=== PATIENT | female | born 1955 | race Caucasian/White ===

== ENCOUNTER 2019-05-10 06:09 | Day surgery (SDC) | payer OTHER ==
[~2019-05-10] VITALS: Ht 167.6 cm; Wt 140.0 kg
[~2019-05-10 06:09] MED LIST: ALBU6.7H8 INH; CEFD300C37 PO; KDUR PO; METR500T PO; OMEP-110 PO; OXYC-302 PO; RIVA20TA PO; SOTA120T14 PO; ZAROXOLYN PO; [UNRECOGNIZED DRUG - OTHER] PO
[2019-05-10 06:30] VITALS: BP 141/81
[2019-05-10] MEDS ORDERED: MAGN400T36 PO (06:51)
[2019-05-10] MEDS ORDERED: MULT-658 PO (06:51)
[2019-05-10] MEDS ORDERED: AMIL5TAB2 PO (06:51)
[2019-05-10] MEDS ORDERED: METO5TAB5 PO (06:51)
[2019-05-10] MEDS ORDERED: POTA10TA6 PO (06:52)
[2019-05-10 07:34] LABS: ANION GAP 5 mmol/L (5-15); CALCIUM 8.9 mg/dL (8.5-10.1); CHLORIDE 110 mmol/L (98-107); CREATININE 0.91 mg/dL (0.55-1.02)
[2019-05-10] MEDS ORDERED: PROPOFOL 10 MG/ML, 20ML ONE (07:35)
== END 2019-05-10 09:21 | disposition home or self-care (01) ==
LOC: CACL 06:09
PROVIDERS: ATTEND Internal Medicine Cardiovascular Disease
DX: I48.91 Unspecified atrial fibrillation (principal); D64.9 Anemia, unspecified; J45.909 Unspecified asthma, uncomplicated; I12.9 Hypertensive chronic kidney disease with stage 1 through stage 4 chronic kidney disease, or unspecified chronic kidney disease; N18.3 Chronic kidney disease, stage 3 (moderate); G47.30 Sleep apnea, unspecified; Z95.0 Presence of cardiac pacemaker; Z88.1 Allergy status to other antibiotic agents; Z88.0 Allergy status to penicillin; Z79.01 Long term (current) use of anticoagulants; Z88.8 Allergy status to other drugs, medicaments and biological substances; Z91.012 Allergy to eggs
CPT/HCPCS: 36415; 80048; 92960; 93005; 93312; 93321; 93325; J2704

== ENCOUNTER 2019-06-21 06:35 | Day surgery (SDC) | payer OTHER ==
[2019-06-19 08:34] VITALS: BP 91/65
[2019-06-19 09:30] LABS: BASOPHILS # (AUTO) 0.03 x10^3/uL (0-0.1); BASOPHILS % (AUTO) 0 % (0-1); EOSINOPHILS % (AUTO) 1 % (1-7); LYMPHOCYTES # (AUTO) 1.51 x10^3/uL (1-3.4); LYMPHOCYTES % (AUTO) 17 % (22-44); MD NO; MEAN CORPUSCULAR HEMOGLOBIN 28.9 pg (27.0-34.8); MEAN CORPUSCULAR HGB CONC 32.3 g/dL (32.4-35.8); MEAN CORPUSCULAR VOLUME 89.5 fL (80-100); MEAN PLATELET VOLUME 8.3 fL (7.4-10.4); MONOCYTES # (AUTO) 0.65 x10^3/uL (0.2-0.8); MONOCYTES % (AUTO) 7 % (2-9); NEUTROPHILS # (AUTO) 6.62 x10^3/uL (1.8-6.8); NEUTROPHILS % (AUTO) 74 % (42-75); PLATELET COUNT 268 x10^3/uL (130-400); RED BLOOD COUNT 5.16 x10^6/uL (3.82-5.3); RED CELL DISTRIBUTION WIDTH 14.6 % (9.6-15.2)
[2019-06-19 14:01] LABS: ANION GAP 4 mmol/L (5-15); CALCIUM 9.7 mg/dL (8.5-10.1); CHLORIDE 105 mmol/L (98-107); CREATININE 0.96 mg/dL (0.55-1.02)
[~2019-06-21] VITALS: Ht 167.6 cm; Wt 140.0 kg
[~2019-06-21 06:35] MED LIST changes: +AMIL5TAB2 PO; +MAGN400T36 PO; +METO5TAB5 PO; +MULT-658 PO; +POTA10TA6 PO
[2019-06-21] MEDS ORDERED: SODIUM CHLORIDE 0.9% 1,000 ML IV SCH (06:45)
[2019-06-21] MEDS ORDERED: PROPOFOL 10 MG/ML, 20ML ONE (07:49)
[2019-06-21] MEDS ORDERED: PHENYLEPHRINE 10 MG/ML ONE (08:36)
[2019-06-21] MEDS ORDERED: SUCCINYLCHOLINE 20 MG/ML, 10ML ONE (08:36)
[2019-06-21] MEDS ORDERED: AMILORIDE 5 MG TABLET PO SCH (09:00)
[2019-06-21] MEDS ORDERED: SODIUM CHLORIDE FLUSH 10ML SYR IVF SCH (09:00)
[2019-06-21] MEDS ORDERED: OMEPRAZOLE 20 MG CAPSULE.DR PO SCH (09:00)
[2019-06-21] MEDS ORDERED: MULTIVITAMIN 1 TABLET PO SCH (09:00)
[2019-06-21] MEDS ORDERED: RIVAROXABAN 20 MG TABLET PO SCH (09:00)
[2019-06-21] MEDS ORDERED: POTASSIUM CHLORIDE 10 MEQ TABLET.ER PO SCH (09:00)
[2019-06-21] MEDS ORDERED: METOLAZONE 5 MG TABLET PO PRN (09:00)
[2019-06-21] MEDS ORDERED: ALBUTEROL SULFATE INH SCH (09:00)
[2019-06-21] MEDS ORDERED: SOTALOL 120MG TABLET PO SCH (09:00)
[2019-06-21] MEDS ORDERED: MAGNESIUM OXIDE PO SCH (09:00)
== END 2019-06-21 10:00 | disposition home or self-care (01) ==
LOC: CACL 06:35
PROVIDERS: ATTEND Internal Medicine Cardiovascular Disease
DX: I48.91 Unspecified atrial fibrillation (principal); E11.22 Type 2 diabetes mellitus with diabetic chronic kidney disease; N18.9 Chronic kidney disease, unspecified; J45.909 Unspecified asthma, uncomplicated; G47.30 Sleep apnea, unspecified; Z79.01 Long term (current) use of anticoagulants; Z79.899 Other long term (current) drug therapy; Z88.0 Allergy status to penicillin; Z88.1 Allergy status to other antibiotic agents; Z88.7 Allergy status to serum and vaccine; Z91.012 Allergy to eggs; Z90.49 Acquired absence of other specified parts of digestive tract; Z95.0 Presence of cardiac pacemaker
CPT/HCPCS: 36415; 71046; 80048; 85025; 92960; 93005; J0330; J2370; J2704

== ENCOUNTER → 2019-11-21 | Outpatient (CLI) | payer OTHER ==
[2019-11-21 09:26] LABS: BASOPHILS # (AUTO) 0.02 x10^3/uL (0-0.1); BASOPHILS % (AUTO) 0 % (0-1); EOSINOPHILS % (AUTO) 2 % (1-7); LYMPHOCYTES # (AUTO) 1.05 x10^3/uL (1-3.4); LYMPHOCYTES % (AUTO) 17 % (22-44); MD NO; MEAN CORPUSCULAR HEMOGLOBIN 29.3 pg (27.0-34.8); MEAN CORPUSCULAR HGB CONC 32.7 g/dL (32.4-35.8); MEAN CORPUSCULAR VOLUME 89.4 fL (80-100); MEAN PLATELET VOLUME 7.8 fL (7.4-10.4); MONOCYTES # (AUTO) 0.44 x10^3/uL (0.2-0.8); MONOCYTES % (AUTO) 7 % (2-9); NEUTROPHILS # (AUTO) 4.62 x10^3/uL (1.8-6.8); NEUTROPHILS % (AUTO) 74 % (42-75); PLATELET COUNT 229 x10^3/uL (130-400); RED BLOOD COUNT 4.98 x10^6/uL (3.82-5.3); RED CELL DISTRIBUTION WIDTH 13.6 % (9.6-15.2)
[2019-11-21 09:32] LABS: ALANINE AMINOTRANSFERASE 25 U/L (12-78); ALBUMIN 3.4 g/dL (3.4-5.0); ANION GAP 6 mmol/L (5-15); CALCIUM 9.5 mg/dL (8.5-10.1); CHLORIDE 105 mmol/L (98-107)
[2019-11-21 09:35] LABS: ALKALINE PHOSPHATASE 91 U/L (45-117); BILIRUBIN,TOTAL 0.8 mg/dL (0.2-1.0); CHOL/HDL RATIO 3.1; CHOLESTEROL, TOTAL 162 mg/dL (140-239); CREATININE 0.99 mg/dL (0.55-1.02); HDL CHOL % 32 % (28-40); HDL CHOLESTEROL (DIRECT) 52 mg/dL (40-60); LDL CHOLESTEROL,CALCULATED 88 mg/dL (54-169); LDL/HDL RATIO 1.7 (0.5-3.0); TOTAL PROTEIN 7.4 g/dL (6.4-8.2); TRIGLYCERIDES 108 mg/dL (50-200); VLDL CHOLESTEROL 22 mg/dL (0-25)
== END | disposition home or self-care (01) ==
LOC: LAB 08:58
PROVIDERS: ATTEND Physician Assistant Medical
DX: I48.91 Unspecified atrial fibrillation (principal); N18.9 Chronic kidney disease, unspecified; G47.30 Sleep apnea, unspecified; Z95.0 Presence of cardiac pacemaker
CPT/HCPCS: 36415; 80053; 80061; 85025

== ENCOUNTER 2020-06-23 16:45 | Emergency (ER) | payer OTHER ==
[~2020-06-23] VITALS: Ht 172.7 cm; Wt 155.0 kg
--- NOTE | 2020-06-23 16:56 | NUR ---
EKG DONE IN TRIAGE
[2020-06-23] MEDS ORDERED: ONDANSETRON 2MG/ML, 2ML ONE (17:29)
[2020-06-23] MEDS ORDERED: ONDANSETRON 2MG/ML, 2ML IVPush ONE ×2 (17:30→19:30)
[2020-06-23] MEDS ORDERED: SODIUM CHLORIDE 0.9% 1,000ML IVBOLUS ONE (17:30)
[2020-06-23 18:03] LABS: BASOPHILS % (AUTO) 0 % (0-1); EOSINOPHILS % (AUTO) 0 % (1-7); LYMPHOCYTES % (AUTO) 15 % (22-44); MEAN CORPUSCULAR HEMOGLOBIN 29.1 pg (27.0-34.8); MEAN CORPUSCULAR HGB CONC 33.1 g/dL (32.4-35.8); MEAN PLATELET VOLUME 7.6 fL (7.4-10.4); MONOCYTES % (AUTO) 11 % (2-9); NEUTROPHILS % (AUTO) 74 % (42-75); PLATELET COUNT 164 x10^3/uL (130-400); RED BLOOD COUNT 4.76 x10^6/uL (3.82-5.3); RED CELL DISTRIBUTION WIDTH 14.5 % (9.6-15.2)
[2020-06-23 18:06] LABS: MD NO
[2020-06-23 18:15] LABS: ALBUMIN 3.2 g/dL (3.4-5.0); ANION GAP 4 mmol/L (5-15); CALCIUM 8.4 mg/dL (8.5-10.1); CHLORIDE 105 mmol/L (98-107); CREATININE 0.95 mg/dL (0.55-1.02)
[2020-06-23 18:19] LABS: ALKALINE PHOSPHATASE 79 U/L (45-117); BILIRUBIN,TOTAL 0.8 mg/dL (0.2-1.0); TROPONIN I < 0.015 ng/mL (0.000-0.045)
[2020-06-23 18:24] LABS: ALANINE AMINOTRANSFERASE 29 U/L (12-78)
[2020-06-23] MEDS ORDERED: ONDANSETRON ODT 4 MG ONE (19:10)
[2020-06-23] MEDS ORDERED: AZITHROMYCIN 250 MG TABLET ONE (19:10)
[2020-06-23] MEDS ORDERED: AZITHROMYCIN 500 MG TABLET PO SCH (19:23)
[2020-06-23 19:30] VITALS: BP 135/81
[2020-06-23] MEDS ORDERED: AZITHROMYCIN 500 MG TABLET PO ONE (19:30)
[2020-06-24] MEDS ORDERED: AZITHROMYCIN 500 MG TABLET PO SCH (09:00)
== END 2020-06-23 20:09 | disposition home or self-care (01) ==
LOC: ED 18:52
DX: U07.1 COVID-19 (principal); R53.1 Weakness; R11.0 Nausea; Z90.49 Acquired absence of other specified parts of digestive tract
CPT/HCPCS: 36415; 71045; 80053; 83880; 84484; 85025; 87635; 93005; 96361; 96374; 96376; 99285; J2405; J7030

== ENCOUNTER 2020-06-25 18:07 | Inpatient (IN) | payer OTHER ==
[~2020-06-25] VITALS: Ht 172.7 cm; Wt 154.6 kg
--- NOTE | 2020-06-25 18:13 | NUR ---
SERVICE COORDINATOR [facility] FACILITY: FAHAD SINGER [phone]
[2020-06-25] MEDS ORDERED: DOXYCYCLINE 100 MG in DEXTROSE 5% 250 ML IV ONE (19:00)
[2020-06-25] MEDS ORDERED: CEFTRIAXONE PMX 2GM/50ML 50 ML IVPB SCH (19:00)
[2020-06-25] MEDS ORDERED: CEFTRIAXONE PMX 2GM/50ML 50 ML ONE (19:13)
[2020-06-25 19:23] LABS: ALANINE AMINOTRANSFERASE 24 U/L (12-78); ALBUMIN 3.2 g/dL (3.4-5.0); ANION GAP 3 mmol/L (5-15); CALCIUM 8.1 mg/dL (8.5-10.1); CHLORIDE 107 mmol/L (98-107); CREATININE 0.97 mg/dL (0.55-1.02); D-DIMER (DIC) 0.32 ug/mlFEU (0.00-0.52); PROTIME 11.7 Seconds (9.6-11.5)
[2020-06-25 19:30] LABS: ALKALINE PHOSPHATASE 82 U/L (45-117); BILIRUBIN,TOTAL 0.5 mg/dL (0.2-1.0); C-REACTIVE PROTEIN, QUANT 0.97 mg/dL (0.02-0.49)
[2020-06-25] MEDS ORDERED: CEFTRIAXONE PMX 2GM/50ML 50 ML IVPB ONE (19:30)
[2020-06-25 20:22] LABS: BASOPHILS % (AUTO) 0 % (0-1); EOSINOPHILS % (AUTO) 1 % (1-7); LYMPHOCYTES % (AUTO) 17 % (22-44); MEAN CORPUSCULAR HEMOGLOBIN 28.9 pg (27.0-34.8); MEAN CORPUSCULAR HGB CONC 33.1 g/dL (32.4-35.8); MEAN PLATELET VOLUME 8.2 fL (7.4-10.4); MONOCYTES % (AUTO) 12 % (2-9); NEUTROPHILS % (AUTO) 71 % (42-75); PLATELET COUNT 158 x10^3/uL (130-400); RED CELL DISTRIBUTION WIDTH 14.4 % (9.6-15.2)
[2020-06-25 20:24] LABS: MD NO
--- NOTE | 2020-06-25 21:02 | NUR ---
Report from DANIELLE Aaron. First contact, pt speaking full sentences, bsc brought in pt up to void with minimal assist. VSS. o2 remains stable. abx infusing. Ordered hospital bed. Will continue to monitor.
--- NOTE | 2020-06-25 21:22 | NUR ---
Set pt up with dinner, sandwich, yogurt, bannana, large water, diet sprite. Ordered barriatric bsc, hospital bed coming.
[2020-06-25] MEDS: SOTALOL 80MG TABLET PO SCH (22:49)
--- NOTE | 2020-06-25 22:52 | NUR ---
Pt moved to [facility] bed. Pt has water, snacks, VSS, on 4L o2. Pt was able to to stand while tx to hospital bed, did become slightly sob and dizzy just prior to moving back into bed. Belongings put into bag, informed pt her daughter called and to please call her with update.
[2020-06-25] MEDS ORDERED: LABETALOL 5MG/ML, 20ML IVPush PRN (23:30)
[2020-06-25] MEDS ORDERED: ACETAMINOPHEN 325 MG TABLET PO PRN (23:30)
[2020-06-25] MEDS ORDERED: PHARMACY MAY ADJ FOR RENAL FX MC PRN (23:30)
[2020-06-25] MEDS ORDERED: DOCUSATE 100 MG CAPSULE PO PRN (23:30)
[2020-06-25] MEDS ORDERED: GUAIFENESIN/DM 200-20MG, 10ML UDC PO PRN (23:30)
[2020-06-25] MEDS ORDERED: MELATONIN 5 MG TABLET PO PRN (23:30)
--- NOTE | 2020-06-25 23:45 | NUR ---
Report to DANIELLE Courtney. Pt to be packaged up with all belongings and tx to [facility]. Pt has aprox 100ml doxy left; encouraging pt to extend arm for at least 20 min to infuse remainder of abx. Informed onesimo, of this as well.
[2020-06-26 00:11] VITALS: BP 128/70
[2020-06-26] MEDS ORDERED: ALBUTEROL HFA 90 MCG/SPRAY INH PRN ×2 (01:30→11:30)
[2020-06-26 02:57] VITALS: BP 117/71
[2020-06-26 06:15] LABS: BASOPHILS % (AUTO) 0 % (0-1); EOSINOPHILS % (AUTO) 1 % (1-7); LYMPHOCYTES % (AUTO) 23 % (22-44); MEAN CORPUSCULAR HGB CONC 33.5 g/dL (32.4-35.8); MONOCYTES % (AUTO) 11 % (2-9); NEUTROPHILS % (AUTO) 65 % (42-75); PLATELET COUNT 147 x10^3/uL (130-400); RED BLOOD COUNT 4.31 x10^6/uL (3.82-5.3); RED CELL DISTRIBUTION WIDTH 14.6 % (9.6-15.2)
[2020-06-26 06:19] LABS: ANION GAP 3 mmol/L (5-15); CALCIUM 8.3 mg/dL (8.5-10.1); CHLORIDE 108 mmol/L (98-107); CREATININE 0.78 mg/dL (0.55-1.02)
[2020-06-26 06:20] LABS: ALANINE AMINOTRANSFERASE 20 U/L (12-78); ALBUMIN 2.8 g/dL (3.4-5.0); D-DIMER 0.33 ug/mlFEU (0.00-0.52); INTERNATIONAL NORMALIZED RATIO 1.1 (0.93-1.1); PROTHROMBIN TIME 11.7 Seconds (9.6-11.5)
[2020-06-26 06:27] LABS: ALKALINE PHOSPHATASE 67 U/L (45-117); BILIRUBIN,TOTAL 0.4 mg/dL (0.2-1.0); CREATINE KINASE, TOTAL 33 U/L (26-192); TOTAL PROTEIN 6.1 g/dL (6.4-8.2)
[2020-06-26 06:34] LABS: MD NO
[2020-06-26] MEDS ORDERED: DOXYCYCLINE 100 MG in DEXTROSE 5% 250 ML IV SCH (07:00)
[2020-06-26 07:03] VITALS: BP 136/60
[2020-06-26] MEDS: SOTALOL 80MG TABLET PO SCH ×2 (10:04→20:16)
[2020-06-26] MEDS: CHOLECALCIFEROL 5,000u TAB PO SCH (10:04)
[2020-06-26] MEDS: ASCORBIC ACID 500 MG TABLET PO SCH ×2 (10:04→20:16)
[2020-06-26] MEDS: ZINC SULFATE 220 MG CAPSULE PO SCH (10:04)
[2020-06-26 12:00] VITALS: BP 121/77
[2020-06-26] MEDS ORDERED: METOLAZONE 5 MG TABLET PO PRN (12:00)
[2020-06-26] MEDS: DEXAMETHASONE 4 MG/ML, 1ML IVPush SCH (12:48)
[2020-06-26] MEDS: AMILORIDE 5 MG TABLET PO SCH (12:49)
[2020-06-26] MEDS: MAGNESIUM OXIDE 400 MG TABLET PO SCH (12:50)
[2020-06-26] MEDS: RIVAROXABAN 20 MG TABLET PO SCH (12:50)
[2020-06-26 18:32] VITALS: BP 137/84
[2020-06-26] MEDS: DOXYCYCLINE 100MG TABLET PO SCH (20:16)
[2020-06-26] MEDS: CEFTRIAXONE PMX 2GM/50ML 50 ML IVPB SCH (20:16)
[2020-06-27 00:01] VITALS: BP 128/82
[2020-06-27 05:15] LABS: HCT (SEDRATE) 38.7 % (34.6-47.8)
[2020-06-27 05:16] LABS: BASOPHILS % (AUTO) 0 % (0-1); EOSINOPHILS % (AUTO) 0 % (1-7); LYMPHOCYTES % (AUTO) 17 % (22-44); MEAN CORPUSCULAR HGB CONC 32.9 g/dL (32.4-35.8); MEAN PLATELET VOLUME 7.9 fL (7.4-10.4); MONOCYTES % (AUTO) 14 % (2-9); NEUTROPHILS % (AUTO) 69 % (42-75); PLATELET COUNT 164 x10^3/uL (130-400); RED BLOOD COUNT 4.47 x10^6/uL (3.82-5.3); RED CELL DISTRIBUTION WIDTH 14.3 % (9.6-15.2)
[2020-06-27 05:25] LABS: MD NO
[2020-06-27 05:28] LABS: CHLORIDE 110 mmol/L (98-107)
[2020-06-27 05:42] LABS: ALANINE AMINOTRANSFERASE 21 U/L (12-78); ALBUMIN 2.8 g/dL (3.4-5.0); ALKALINE PHOSPHATASE 72 U/L (45-117); ANION GAP 3 mmol/L (5-15); BILIRUBIN,TOTAL 0.4 mg/dL (0.2-1.0); CALCIUM 8.4 mg/dL (8.5-10.1); CREATININE 0.78 mg/dL (0.55-1.02); TOTAL PROTEIN 6.5 g/dL (6.4-8.2)
[2020-06-27 06:35] VITALS: BP 151/90
[2020-06-27] MEDS: MAGNESIUM OXIDE 400 MG TABLET PO SCH (09:00)
[2020-06-27] MEDS ORDERED: PRED20TA PO (09:35)
[2020-06-27] MEDS ORDERED: ASCO500T9 PO (09:35)
[2020-06-27] MEDS ORDERED: ZINC220C7 PO (09:35)
[2020-06-27] MEDS ORDERED: CHOL10003 PO (09:35)
[2020-06-27] MEDS: CHOLECALCIFEROL 5,000u TAB PO SCH (11:20)
[2020-06-27] MEDS: OMEPRAZOLE 20 MG CAPSULE.DR PO SCH (11:20)
[2020-06-27] MEDS: DOXYCYCLINE 100MG TABLET PO SCH ×2 (11:21→20:13)
[2020-06-27] MEDS: DEXAMETHASONE 4 MG/ML, 1ML IVPush SCH (11:22)
[2020-06-27] MEDS: AMILORIDE 5 MG TABLET PO SCH (11:23)
[2020-06-27] MEDS: SOTALOL 80MG TABLET PO SCH ×2 (11:23→20:14)
[2020-06-27] MEDS: RIVAROXABAN 20 MG TABLET PO SCH (11:23)
[2020-06-27] MEDS: ASCORBIC ACID 500 MG TABLET PO SCH ×2 (11:24→20:13)
[2020-06-27] MEDS: ZINC SULFATE 220 MG CAPSULE PO SCH (11:24)
[2020-06-27 14:40] VITALS: BP 122/66
[2020-06-27 20:11] VITALS: BP 143/87
[2020-06-27] MEDS: CEFTRIAXONE PMX 2GM/50ML 50 ML IVPB SCH (20:13)
[2020-06-28 05:33] LABS: BASOPHILS % (AUTO) 0 % (0-1); EOSINOPHILS % (AUTO) 0 % (1-7); LYMPHOCYTES % (AUTO) 14 % (22-44); MEAN CORPUSCULAR HEMOGLOBIN 28.5 pg (27.0-34.8); MEAN CORPUSCULAR HGB CONC 32.6 g/dL (32.4-35.8); MEAN PLATELET VOLUME 7.7 fL (7.4-10.4); MONOCYTES % (AUTO) 17 % (2-9); NEUTROPHILS % (AUTO) 70 % (42-75); PLATELET COUNT 203 x10^3/uL (130-400); RED BLOOD COUNT 4.69 x10^6/uL (3.82-5.3); RED CELL DISTRIBUTION WIDTH 14.2 % (9.6-15.2)
[2020-06-28 05:38] LABS: CHLORIDE 111 mmol/L (98-107); MD NO
[2020-06-28 05:43] LABS: ALANINE AMINOTRANSFERASE 24 U/L (12-78); ALBUMIN 2.9 g/dL (3.4-5.0); ALKALINE PHOSPHATASE 71 U/L (45-117); ANION GAP 3 mmol/L (5-15); BILIRUBIN,TOTAL 0.3 mg/dL (0.2-1.0); C-REACTIVE PROTEIN, QUANT 0.51 mg/dL (0.02-0.49); CREATININE 0.82 mg/dL (0.55-1.02); TOTAL PROTEIN 6.8 g/dL (6.4-8.2)
[2020-06-28 06:53] VITALS: BP 133/86
[2020-06-28] MEDS: MAGNESIUM OXIDE 400 MG TABLET PO SCH (09:00)
[2020-06-28] MEDS: AMILORIDE 5 MG TABLET PO SCH (11:03)
[2020-06-28] MEDS: CHOLECALCIFEROL 5,000u TAB PO SCH (11:03)
[2020-06-28] MEDS: DEXAMETHASONE 4 MG/ML, 1ML IVPush SCH (11:04)
[2020-06-28] MEDS: OMEPRAZOLE 20 MG CAPSULE.DR PO SCH (11:04)
[2020-06-28] MEDS: ZINC SULFATE 220 MG CAPSULE PO SCH (11:04)
[2020-06-28] MEDS: DOXYCYCLINE 100MG TABLET PO SCH (11:05)
[2020-06-28] MEDS: RIVAROXABAN 20 MG TABLET PO SCH (11:05)
[2020-06-28] MEDS: ASCORBIC ACID 500 MG TABLET PO SCH (11:05)
[2020-06-28] MEDS: SOTALOL 80MG TABLET PO SCH (11:05)
[2020-06-28 13:15] VITALS: BP 120/63
== END 2020-06-28 17:09 | disposition home or self-care (01) | DRG 177 ==
LOC: ED 18:27 → EDIP 21:16 → 3N 06-26 00:06
PROVIDERS: ADMIT Family Medicine; ATTEND Family Medicine
PROC: 5A09457 Assistance with Respiratory Ventilation, 24-96 Consecutive Hours, Continuous Positive Airway Pressure (ICD-10-PCS; principal; 2020-06-26)
DX: U07.1 COVID-19 (principal); J12.89 Other viral pneumonia; J96.01 Acute respiratory failure with hypoxia; D68.69 Other thrombophilia; E66.2 Morbid (severe) obesity with alveolar hypoventilation; I48.20 Chronic atrial fibrillation, unspecified; Z68.43 Body mass index [BMI] 50.0-59.9, adult; I27.20 Pulmonary hypertension, unspecified; I48.0 Paroxysmal atrial fibrillation; Z82.49 Family history of ischemic heart disease and other diseases of the circulatory system; Z90.49 Acquired absence of other specified parts of digestive tract; Z90.710 Acquired absence of both cervix and uterus; Z88.0 Allergy status to penicillin; Z88.1 Allergy status to other antibiotic agents; Z91.012 Allergy to eggs
CPT/HCPCS: 36415; 71045; 80053; 82550; 82728; 83605; 83615; 83735; 84145; 85025; 85049; 85379; 85384; 85610; 85651; 85730; 86140; 87040; 93005; 94660; 99285; G0378; J0696; J1100; J7060

== ENCOUNTER 2021-01-27 08:06 | Inpatient (IN) | payer OTHER ==
[~2021-01-27] VITALS: Ht 167.6 cm; Wt 154.1 kg
[~2021-01-27 08:06] MED LIST changes: +ASCO500T9 PO; +CHOL10003 PO; -OXYC-302 PO; +OXYC1TAB14 PO; +PRED20TA PO; +ZINC220C7 PO
[2021-01-27] MEDS ORDERED: METRONIDAZOLE PMX 500MG/100ML 100 ML ONE (08:59)
[2021-01-27] MEDS ORDERED: METRONIDAZOLE PMX 500MG/100ML 100 ML IV ONE (09:00)
[2021-01-27] MEDS ORDERED: SODIUM CHLORIDE FLUSH 10ML SYR IVF ONE (09:00)
[2021-01-27] MEDS ORDERED: SODIUM CHLORIDE 0.9% 1,000ML IVBOLUS ONE (09:00)
--- NOTE | 2021-01-27 09:01 | NUR ---
PT UPRIGHT ON GURNEY AWAKE & COMFORTABLE, RESPONDS APPROP TO STAFF, NAD, COMFORT MEASURES PROVIDED, SON AT BS, CALL LIGHT WITHIN REACH.
[2021-01-27] MEDS ORDERED: CEFTRIAXONE 500 MG in DEXTROSE 5% 50 ML IV ONE (09:15)
--- NOTE | 2021-01-27 09:27 | NUR ---
TASK RN NOTE: SELENE, PRIMARY RN STARTED MEDS PER EMAR. US AT BEDSIDE PRESENTLY. NAD NOTED AT THIS TIME.
[2021-01-27] MEDS ORDERED: CEFTRIAXONE 1,000 MG in DEXTROSE 5% 50 ML IVPB ONE (09:30)
[2021-01-27 09:32] LABS: BASOPHILS % (AUTO) 0 % (0-1); EOSINOPHILS % (AUTO) 0 % (1-7); LYMPHOCYTES % (AUTO) 4 % (22-44); MEAN CORPUSCULAR HEMOGLOBIN 29.5 pg (27.0-34.8); MEAN CORPUSCULAR HGB CONC 33.7 g/dL (32.4-35.8); MEAN PLATELET VOLUME 8.1 fL (7.4-10.4); MONOCYTES % (AUTO) 5 % (2-9); NEUTROPHILS % (AUTO) 91 % (42-75); PLATELET COUNT 220 x10^3/uL (130-400); RED BLOOD COUNT 4.54 x10^6/uL (3.82-5.3); RED CELL DISTRIBUTION WIDTH 14.3 % (9.6-15.2)
[2021-01-27 09:40] LABS: ALBUMIN 3.2 g/dL (3.4-5.0); CALCIUM 8.9 mg/dL (8.5-10.1); CHLORIDE 101 mmol/L (98-107)
[2021-01-27 09:48] LABS: ALANINE AMINOTRANSFERASE 18 U/L (12-78); ALKALINE PHOSPHATASE 76 U/L (45-117); BILIRUBIN,TOTAL 1.8 mg/dL (0.2-1.0); CREATININE 0.92 mg/dL (0.55-1.02); TOTAL PROTEIN 7.4 g/dL (6.4-8.2)
[2021-01-27 09:49] LABS: ANION GAP 5 mmol/L (5-15)
--- NOTE | 2021-01-27 10:02 | NUR ---
PT REMAINS UPRIGHT ON GURNEY AWAKE & COMFORTABLE, US IN PROGRESS, RESPONDS APPROP TO STAFF, NAD, NO NEEDS AT THIS TIME, SON AT BS, CALL LIGHT WITHIN REACH.
--- NOTE | 2021-01-27 11:00 | NUR ---
PT UPRIGHT ON GURNEY AWAKE & COMFORTABLE, RESPONDS APPROP TO STAFF, NAD, NO NEEDS AT THIS TIME, SON AT BS, CALL LIGHT WITHIN REACH.
[2021-01-27] MEDS ORDERED: ONDANSETRON 2MG/ML, 2ML ONE (11:32)
[2021-01-27] MEDS ORDERED: ONDANSETRON 2MG/ML, 2ML IVPush ONE (12:00)
--- NOTE | 2021-01-27 12:04 | NUR ---
PT REMAINS UPRIGHT ON GURNEY AWAKE & COMFORTABLE, RESPONDS APPROP TO STAFF, NAD, NO NEEDS AT THIS TIME, SON AT BS, CALL LIGHT WITHIN REACH.
--- NOTE | 2021-01-27 13:05 | NUR ---
PT UPRIGHT ON GURNEY AWAKE & COMFORTABLE, WATCHING TV, RESPONDS APPROP TO STAFF, NAD, NO NEEDS AT THIS TIME, SON AT BS, CALL LIGHT WITHIN REACH.
--- NOTE | 2021-01-27 13:29 | NUR ---
TASK RN NOTE: PT RECLINED IN BED WATCHING TELEVISION. NAD NOTED AT THIS TIME. AWAITING ADMISSION ORDER FROM EDMD.
--- NOTE | 2021-01-27 14:06 | NUR ---
PT AMBULATED TO BR WITH INCONT URINE ("I MUST'VE WAITED TOO LONG TO GO TO THE BR"), PT BACK TO [facility] AFTER GOWN & LINEN CHANGE, RESPONDS APPROP TO STAFF, NAD, NO NEEDS AT THIS TIME, CALL LIGHT WITHIN REACH.
--- NOTE | 2021-01-27 14:57 | NUR ---
Pt to be admitted to [facility], room 334. Report called to SHAE.
[2021-01-27] MEDS ORDERED: HYDROcodone/APAP 5/325 TABLET PO PRN (15:00)
[2021-01-27] MEDS ORDERED: METOLAZONE 5 MG TABLET PO PRN (15:00)
[2021-01-27] MEDS ORDERED: LACTATED RINGERS 1,000 ML IV SCH (15:00)
[2021-01-27] MEDS ORDERED: ENALAPRILAT 1.25 MG/ML, 2ML IVPush PRN (15:00)
[2021-01-27] MEDS ORDERED: ALBUTEROL SULFATE 2.5 MG/3 ML NPPB PRN (15:00)
[2021-01-27] MEDS ORDERED: morphine SULFATE 10 MG/ML, 1ML IVPush PRN (15:00)
[2021-01-27] MEDS ORDERED: ONDANSETRON 2MG/ML, 2ML IVPush PRN (15:00)
[2021-01-27] MEDS ORDERED: POLYETHYLENE GLYCOL 17 GM PACKET PO PRN (15:00)
[2021-01-27] MEDS ORDERED: PROMETHAZINE 25 MG/ML, 1ML IM PRN (15:00)
[2021-01-27] MEDS: ACETAMINOPHEN 325 MG TABLET PO PRN ×2 (16:11→20:29)
[2021-01-27] MEDS: METRONIDAZOLE PMX 500MG/100ML 100 ML IV SCH (18:08)
[2021-01-27 19:02] VITALS: BP 137/66
[2021-01-27 20:28] VITALS: BP 103/69
[2021-01-27] MEDS: SOTALOL 80MG TABLET PO SCH (20:30)
[2021-01-27] MEDS ORDERED: MELATONIN 5 MG TABLET PO PRN (21:00)
[2021-01-28] MEDS: METRONIDAZOLE PMX 500MG/100ML 100 ML IV SCH ×4 (00:07→20:11)
[2021-01-28 01:34] VITALS: BP 112/73
[2021-01-28 04:34] LABS: BASOPHILS % (AUTO) 0 % (0-1); EOSINOPHILS % (AUTO) 1 % (1-7); LYMPHOCYTES % (AUTO) 11 % (22-44); MEAN CORPUSCULAR HEMOGLOBIN 29.2 pg (27.0-34.8); MEAN CORPUSCULAR HGB CONC 33.2 g/dL (32.4-35.8); MONOCYTES % (AUTO) 8 % (2-9); NEUTROPHILS % (AUTO) 79 % (42-75); PLATELET COUNT 177 x10^3/uL (130-400); RED CELL DISTRIBUTION WIDTH 14.2 % (9.6-15.2)
[2021-01-28 04:43] LABS: ALBUMIN 2.4 g/dL (3.4-5.0); ANION GAP 3 mmol/L (5-15); CALCIUM 8.2 mg/dL (8.5-10.1); CHLORIDE 106 mmol/L (98-107)
[2021-01-28 04:47] LABS: ALANINE AMINOTRANSFERASE 16 U/L (12-78); ALKALINE PHOSPHATASE 63 U/L (45-117); BILIRUBIN,TOTAL 0.8 mg/dL (0.2-1.0); CREATININE 0.78 mg/dL (0.55-1.02); TOTAL PROTEIN 6.1 g/dL (6.4-8.2)
[2021-01-28 08:45] VITALS: BP 109/72
[2021-01-28] MEDS: POTASSIUM CHLORIDE 20 MEQ TAB.ER.PRT PO SCH ×2 (09:10→20:12)
[2021-01-28] MEDS: PANTOPRAZOLE 40MG TABLET PO SCH (09:10)
[2021-01-28] MEDS: AMILORIDE 5 MG TABLET PO SCH (09:10)
[2021-01-28] MEDS: RIVAROXABAN 20 MG TABLET PO SCH (09:10)
[2021-01-28] MEDS: SOTALOL 80MG TABLET PO SCH ×2 (09:11→20:12)
[2021-01-28 13:16] VITALS: BP 103/53
[2021-01-28] MEDS: CEFTRIAXONE 2 GM in DEXTROSE 5% 50 ML IVPB SCH (14:05)
[2021-01-28 21:34] VITALS: BP 106/68
[2021-01-29 01:30] VITALS: BP 122/74
[2021-01-29] MEDS: METRONIDAZOLE PMX 500MG/100ML 100 ML IV SCH ×2 (02:12→07:15)
[2021-01-29 04:51] LABS: BASOPHILS % (AUTO) 0 % (0-1); EOSINOPHILS % (AUTO) 2 % (1-7); LYMPHOCYTES % (AUTO) 17 % (22-44); MEAN CORPUSCULAR HEMOGLOBIN 29.6 pg (27.0-34.8); MEAN CORPUSCULAR HGB CONC 33.3 g/dL (32.4-35.8); MEAN PLATELET VOLUME 7.9 fL (7.4-10.4); MONOCYTES % (AUTO) 11 % (2-9); NEUTROPHILS % (AUTO) 70 % (42-75); PLATELET COUNT 209 x10^3/uL (130-400); RED BLOOD COUNT 4.06 x10^6/uL (3.82-5.3); RED CELL DISTRIBUTION WIDTH 14.3 % (9.6-15.2)
[2021-01-29 05:07] LABS: ALBUMIN 2.5 g/dL (3.4-5.0); ANION GAP 3 mmol/L (5-15); CALCIUM 8.6 mg/dL (8.5-10.1); CHLORIDE 107 mmol/L (98-107)
[2021-01-29 05:11] LABS: ALANINE AMINOTRANSFERASE 15 U/L (12-78); ALKALINE PHOSPHATASE 65 U/L (45-117); BILIRUBIN,TOTAL 0.4 mg/dL (0.2-1.0); CREATININE 0.82 mg/dL (0.55-1.02); TOTAL PROTEIN 6.4 g/dL (6.4-8.2)
[2021-01-29 07:09] VITALS: BP 120/82
[2021-01-29] MEDS: PANTOPRAZOLE 40MG TABLET PO SCH (07:15)
[2021-01-29] MEDS: RIVAROXABAN 20 MG TABLET PO SCH (07:15)
[2021-01-29] MEDS: AMILORIDE 5 MG TABLET PO SCH (07:15)
[2021-01-29] MEDS: POTASSIUM CHLORIDE 20 MEQ TAB.ER.PRT PO SCH (07:16)
[2021-01-29] MEDS: SOTALOL 80MG TABLET PO SCH (07:16)
[2021-01-29] MEDS: CEFTRIAXONE 2 GM in DEXTROSE 5% 50 ML IVPB SCH (09:06)
[2021-01-29] MEDS ORDERED: CEFD300C37 PO (09:35)
[2021-01-29] MEDS ORDERED: DOXY100C2 PO (09:35)
== END 2021-01-29 13:00 | disposition home or self-care (01) | DRG 872 ==
LOC: ED 08:48 → EDIP 14:00 → 3N 15:15 → DCLOUNGE 01-29 12:55
PROVIDERS: ADMIT Internal Medicine; ATTEND Hospitalist
DX: A41.9 Sepsis, unspecified organism (principal); L03.116 Cellulitis of left lower limb; E66.2 Morbid (severe) obesity with alveolar hypoventilation; Z68.43 Body mass index [BMI] 50.0-59.9, adult; E87.6 Hypokalemia; I27.20 Pulmonary hypertension, unspecified; K21.9 Gastro-esophageal reflux disease without esophagitis; I48.0 Paroxysmal atrial fibrillation; J45.909 Unspecified asthma, uncomplicated; Z90.710 Acquired absence of both cervix and uterus; W55.03XA Scratched by cat, initial encounter; Y93.89 Activity, other specified; Y92.89 Other specified places as the place of occurrence of the external cause; Y99.8 Other external cause status; Z79.899 Other long term (current) drug therapy; Z79.01 Long term (current) use of anticoagulants; Z90.49 Acquired absence of other specified parts of digestive tract; Z95.0 Presence of cardiac pacemaker; Z90.3 Acquired absence of stomach [part of]
CPT/HCPCS: 36415; 99285; J7613; 80053; 83605; 83735; 83880; 84100; 85025; 87040; 94640; 94660; G0378; J0696; J2405; J7030; J7120